=== PATIENT | female | born 1965 | race Caucasian/White ===

== ENCOUNTER 2016-08-09 11:00 | Emergency (ER) | payer BC ==
[2016-08-09] MEDS ORDERED: LIDOCAINE VISCOUS 2% 15 ML UDC MM STA (12:44)
[2016-08-09] MEDS ORDERED: MAG HYDROX/AL HYDROX/SIMETH 30 ML UDC PO STA (12:44)
[2016-08-09] MEDS ORDERED: LIDOCAINE VISCOUS 2% 15 ML UDC MM ONE (12:54)
[2016-08-09] MEDS ORDERED: MAG HYDROX/AL HYDROX/SIMETH 30 ML UDC ONE (12:55)
== END 2016-08-09 13:47 | disposition home or self-care (01) ==
DX: R07.1 Chest pain on breathing (principal)
CPT/HCPCS: 36415; 71020; 80053; 83690; 84484; 93005; 93010; 99283; 99284; A9270

== ENCOUNTER 2016-10-11 08:50 | Outpatient (CLI) | payer BC ==
--- NOTE | 2016-10-12 17:26 | Mammography Report ---
DIGITAL SCREENING MAMMOGRAM: 10/11/2016 CLINICAL INDICATION: A 50-year-old for screening. COMPARISON: 09/2015, 05/2014, 04/2013, 12/2009 TECHNIQUE: Routine CC and MLO projections were obtained of the breasts. FINDINGS: The breasts demonstrate heterogeneously dense fibroglandular parenchyma bilaterally. Ther e is a possible increase in calcifications in the right upper outer quadrant. Further evaluation wit h spot magnification views is recommended. No mammographically suspicious findings are appreciated i n the left breast. IMPRESSION: INCOMPLETE EXAMINATION. RECOMMENDATION: Additional evaluation of the right breast as above. BIRADS CATEGORY 0 - INCOMPLETE. STANDARD QUALIFYING STATEMENTS 1. This examination was reviewed with the aid of Computer-Aided Detection (CAD). 2. A negative or benign imaging report should not delay biopsy if clinically suspicious findings are present. Consider surgical consultation if warranted. More than 5% of cancers are not identified by i maging. 3. Dense breasts may obscure an underlying neoplasm. JOB #: [id number] EXT JOB #:[id number]
== END 2016-10-11 08:51 | disposition home or self-care (01) ==
LOC: DI 08:50
PROVIDERS: ATTEND Naturopath
DX: Z12.31 Encounter for screening mammogram for malignant neoplasm of breast (principal); R92.1 Mammographic calcification found on diagnostic imaging of breast
CPT/HCPCS: 77067

== ENCOUNTER 2016-10-26 12:31 | Outpatient (CLI) | payer BC ==
--- NOTE | 2016-10-26 16:02 | Mammography Report ---
DIGITAL ADDITIONAL VIEWS OF THE RIGHT BREAST: 10/26/2016 CLINICAL HISTORY: A 51-year-old female who had progression of a cluster of calcifications in the uppe r outer quadrant of the right breast on recent screening mammogram dated 10/11/2016. The patient retu rns today for magnification views. Family history indicates no family history of breast cancer. The patient has no history of prior [facility] [address] surgeries. COMPARISON: 12/12/2009, 12/16/2009, 04/28/2013, 05/04/2014, 09/13/2015, 10/11/2016. TECHNIQUE: Magnification craniocaudad and mediolateral views of the right breast were done with Holog ic full field digital mammography. FINDINGS: The breast parenchyma once again consists of heterogeneous breast. There is a cluster of c alcifications noted in the upper outer quadrant of the right breast at the 10 o'clock position 5-6 cm superior and posterior to the right nipple. These calcifications have a faint granular type appearan ce that can be seen especially with cribriform type of breast cancer. Recommend stereotactic biopsy u nder mammographic guidance for further evaluation. IMPRESSION: A FAIRLY LARGE CLUSTER OF FAINT GRANULAR TYPE OF CALCIFICATIONS IS SEEN IN THE UPPER OUT ER QUADRANT OF THE RIGHT BREAST AT THE 10 O'CLOCK POSITION. THESE HAVE SHOWN SIGNIFICANT PROGRESSION OVER THE COURSE OF PATIENT'S MAMMOGRAMS. FINDINGS RAISE CONCERN IN REGARD TO A BREAST CANCER. RECOMME ND STEREOTACTIC BIOPSY UNDER MAMMOGRAPHIC GUIDANCE FOR FURTHER EVALUATION. BIRADS CATEGORY 4-SUSPICIOUS FINDING. STEREOTACTIC BIOPSY UNDER MAMMOGRAPHIC GUIDANCE IS RECOMMENDED FOR FURTHER EVALUATION. COMMENT: Dr. Gaston attempted to contact patient's physician. Dr. Gomez was not available. A message w as left on her voice mail in regard to the findings of patient's additional views of the right breast and the recommendations for stereotactic biopsy under mammographic guidance. A report will also be f axed to Dr. Gomez's office today in addition to her receiving the official signed report. This was done on 10/26/2016 at 2:15 p.m. STANDARD QUALIFYING STATEMENTS 1. This examination was reviewed with the aid of Computer-Aided Detection (CAD). 2. A negative or benign imaging report should not delay biopsy if clinically suspicious findings are present. Consider surgical consultation if warranted. More than 5% of cancers are not identified by i maging. 3. Dense breasts may obscure an underlying neoplasm. JOB #: [id number] EXT JOB #:[id number]
== END 2016-10-26 12:32 | disposition home or self-care (01) ==
LOC: DI 12:31
PROVIDERS: ATTEND Naturopath
DX: R92.1 Mammographic calcification found on diagnostic imaging of breast (principal)

== ENCOUNTER 2016-12-14 08:43 | Outpatient (CLI) | payer BC | END 2016-12-14 08:44 | disposition home or self-care (01) | LOC: DI 08:43 | PROVIDERS: ATTEND Naturopath | DX: R94.31 Abnormal electrocardiogram [ECG] [EKG] (principal); R42 Dizziness and giddiness | CPT/HCPCS: 93306 ==

== ENCOUNTER 2018-06-28 08:21 | Outpatient (CLI) | payer BC ==
[2018-06-28 08:47] LABS: BASOPHILS % (AUTO) 0.9 %; EOSINOPHILS # (AUTO) 0.3 10^3/uL (0.0-0.7); EOSINOPHILS % (AUTO) 5.7 %; HGB - HEMOGLOBIN 15.2 g/dL (12.0-16.0); LYMPHOCYTES # (AUTO) 1.9 10^3/uL (1.5-3.5); LYMPHOCYTES % (AUTO) 36.3 %; MEAN CORPUSCULAR HEMOGLOBIN 32.1 pg (27.0-31.0); MEAN CORPUSCULAR HGB CONC 33.9 g/dL (32.0-36.0); MEAN CORPUSCULAR VOLUME 94.6 fL (81.0-99.0); MEAN PLATELET VOLUME 8.6 fL (7.9-10.8); MONOCYTES # (AUTO) 0.5 10^3/uL (0.0-1.0); MONOCYTES % (AUTO) 9.2 %; NEUTROPHILS # (AUTO) 2.5 10^3/uL (1.5-6.6); NEUTROPHILS % (AUTO) 47.9 %; PLT - PLATELET COUNT 234 10^3/uL (130-450); RED BLOOD COUNT 4.72 10^6/uL (4.20-5.40); RED CELL DISTRIBUTION WIDTH 13.8 % (12.0-15.0); WHITE BLOOD COUNT 5.3 x10^3/uL (4.8-10.8)
[2018-06-28 09:04] LABS: % IRON SATURATION 70 % (20-50); ALBUMIN/GLOBULIN RATIO 1.4 (1.0-2.2); ALKALINE PHOSPHATASE 54 IU/L (42-121); ALT ALANINE AMINOTRANSFERASE 24 IU/L (10-60); AST ASPARTATE AMINOTRANSFERASE 25 IU/L (10-42); BUN - BLOOD UREA NITROGEN 14 mg/dL (6-20); CALCIUM 8.9 mg/dL (8.5-10.3); CARBON DIOXIDE - CO2 26 mmol/L (21-32); CHLORIDE 103 mmol/L (101-111); CHOL/HDL RATIO 2.9 (<4.4); CHOLESTEROL 194 mg/dL; CREATININE 0.6 mg/dL (0.4-1.0); GFR - MDRD 105 (>89); GLUCOSE 107 mg/dL (70-100); HDL CHOLESTEROL 68 mg/dL; IRON 140 ug/dL (28-170); LDL CHOLESTEROL,CALCULATED 114 mg/dL; LDL/HDL RATIO 1.7 (<4.4); SODIUM 138 mmol/L (135-145); TOTAL IRON BINDING CAPACITY 200 ug/dL (250-450); TOTAL PROTEIN 6.9 g/dL (6.7-8.2); TRANSFERRIN 143 mg/dL (192-382); VLDL CHOLESTEROL 12 mg/dL
[2018-06-28 09:18] LABS: FREE T4 (FREE THYROXINE) 1.01 ng/dL (0.58-1.64)
[2018-06-28 09:26] LABS: HB2 TOTAL 16.3 g/dL; HEMOGLOBIN A1C 0.53 g/dL; HEMOGLOBIN A1C % 5.1 % (4.6-6.2)
[2018-06-28 09:36] LABS: THYROID STIMULATING HORMONE 1.02 uIU/mL (0.34-5.60)
[2018-06-28 09:43] LABS: FERRITIN 68.3 ng/mL (11.0-306.8); TOTAL T3 0.82 ng/mL (0.87-1.78)
== END 2018-06-28 08:22 | disposition home or self-care (01) ==
LOC: LAB 08:21
PROVIDERS: ATTEND Naturopath
DX: Z00.00 Encounter for general adult medical examination without abnormal findings (principal); R53.83 Other fatigue; R63.5 Abnormal weight gain; R79.89 Other specified abnormal findings of blood chemistry; R71.8 Other abnormality of red blood cells; L65.9 Nonscarring hair loss, unspecified; E55.9 Vitamin D deficiency, unspecified
CPT/HCPCS: 36415; 80053; 80061; 82728; 83036; 83540; 83721; 84439; 84443; 84466; 84480; 84481; 84482; 85025

== ENCOUNTER 2018-08-16 07:13 | Outpatient (CLI) | payer BC ==
[2018-08-16 08:40] LABS: THYROID STIMULATING HORMONE 1.49 uIU/mL (0.34-5.60)
[2018-08-16 08:42] LABS: FREE T4 (FREE THYROXINE) 0.81 ng/dL (0.58-1.64)
[2018-08-16 08:47] LABS: TOTAL T3 1.2 ng/mL (0.87-1.78)
== END 2018-08-16 07:14 | disposition home or self-care (01) ==
LOC: LAB 07:13
PROVIDERS: ATTEND Naturopath
DX: E03.9 Hypothyroidism, unspecified (principal); R53.83 Other fatigue; R63.5 Abnormal weight gain; L65.9 Nonscarring hair loss, unspecified
CPT/HCPCS: 36415; 84439; 84443; 84480; 84481; 84482

== ENCOUNTER 2018-10-25 07:27 | Outpatient (CLI) | payer BC ==
--- NOTE | 2018-10-25 22:07 | Ultrasound Report ---
Reason: ABNORMAL LEVEL OF BLOOD MINERAL Procedure Date: 10/25/2018 Accession Number: [id number] / [id number] Procedure: US - Abdomen Limited CPT Code: FULL RESULT: EXAM: ABDOMEN ULTRASOUND LIMITED, RUQ EXAM DATE: 10/25/2018 08:04 AM. CLINICAL HISTORY: ABNORMAL LEVEL OF BLOOD MINERAL. COMPARISON: None. TECHNIQUE: Real-time scanning was performed with static images obtained. FINDINGS: Liver: Unremarkable echotexture. 13 cm. Main portal vein flow: Hepatopetal. Gallbladder: No stones, wall thickening, or sonographic Chang's sign. Biliary System: CBD measures 6 mm. No intrahepatic ductal dilatation. Other: Right kidney demonstrates no hydronephrosis. Visualized portions of the pancreas are unremarkable. Distal body and tail are obscured by overlying bowel gas. IMPRESSION: No acute sonographic abnormalities. RADIA
== END 2018-10-25 07:28 | disposition home or self-care (01) ==
LOC: DI 07:27
PROVIDERS: ATTEND Internal Medicine
DX: R79.0 Abnormal level of blood mineral (principal)
CPT/HCPCS: 76705

== ENCOUNTER 2019-03-24 08:04 | Outpatient (CLI) | payer BC ==
[2019-03-24 08:36] LABS: BASOPHILS # (AUTO) 0.1 10^3/uL (0.0-0.1); EOSINOPHILS # (AUTO) 0.4 10^3/uL (0.0-0.7); EOSINOPHILS % (AUTO) 6.1 %; HGB - HEMOGLOBIN 14.9 g/dL (12.0-16.0); LYMPHOCYTES # (AUTO) 2.4 10^3/uL (1.5-3.5); LYMPHOCYTES % (AUTO) 38.5 %; MEAN PLATELET VOLUME 10.1 fL (7.9-10.8); MONOCYTES # (AUTO) 0.5 10^3/uL (0.0-1.0); MONOCYTES % (AUTO) 8.1 %; NEUTROPHILS # (AUTO) 2.9 10^3/uL (1.5-6.6); PLT - PLATELET COUNT 229 10^3/uL (130-450); RED BLOOD COUNT 4.65 10^6/uL (4.20-5.40); RED CELL DISTRIBUTION WIDTH 13.4 % (12.0-15.0); WHITE BLOOD COUNT 6.3 x10^3/uL (4.8-10.8)
[2019-03-24 09:01] LABS: ALBUMIN 3.8 g/dL (3.2-5.5); ALBUMIN/GLOBULIN RATIO 1.4 (1.0-2.2); BILIRUBIN,TOTAL 0.8 mg/dL (0.2-1.0); CALCIUM 8.6 mg/dL (8.5-10.3); CREATININE 0.7 mg/dL (0.4-1.0); TOTAL PROTEIN 6.5 g/dL (6.7-8.2)
[2019-03-24 09:09] LABS: THYROID STIMULATING HORMONE 1.62 uIU/mL (0.34-5.60)
[2019-03-24 09:11] LABS: FREE T4 (FREE THYROXINE) 0.76 ng/dL (0.58-1.64)
[2019-03-24 09:15] LABS: FERRITIN 58.9 ng/mL (11.0-306.8)
[2019-03-24 09:16] LABS: TOTAL T3 1.21 ng/mL (0.87-1.78)
[2019-03-24 09:25] LABS: FREE T3 3.44 pg/mL (2.5-3.9)
== END 2019-03-24 08:05 | disposition home or self-care (01) ==
LOC: LAB 08:04
PROVIDERS: ATTEND Naturopath
DX: Z01.84 Encounter for antibody response examination (principal); R79.0 Abnormal level of blood mineral; E03.9 Hypothyroidism, unspecified; R77.8 Other specified abnormalities of plasma proteins
CPT/HCPCS: 36415; 80053; 82728; 83540; 84439; 84443; 84466; 84480; 84481; 84482; 85025; 86735; 86762; 86765

== ENCOUNTER 2019-06-23 08:24 | Outpatient (CLI) | payer BC ==
[2019-06-23 09:40] LABS: HEMOGLOBIN A1C 0.6 g/dL; HEMOGLOBIN A1C % 5.8 % (4.6-6.2)
[2019-06-23 09:52] LABS: THYROID STIMULATING HORMONE 1.1 uIU/mL (0.34-5.60)
[2019-06-23 09:56] LABS: FREE T4 (FREE THYROXINE) 0.66 ng/dL (0.58-1.64)
[2019-06-23 10:00] LABS: TOTAL T3 1.38 ng/mL (0.87-1.78)
[2019-06-24 10:55] LABS: HOMOCYSTEINE 9.9 umol/L (<10.4)
== END 2019-06-23 08:25 | disposition home or self-care (01) ==
LOC: LAB 08:24
PROVIDERS: ATTEND Naturopath
DX: Z00.00 Encounter for general adult medical examination without abnormal findings (principal); E03.9 Hypothyroidism, unspecified; R79.0 Abnormal level of blood mineral; R53.83 Other fatigue; E55.9 Vitamin D deficiency, unspecified; E28.1 Androgen excess
CPT/HCPCS: 36415; 82306; 82626; 83036; 83090; 84439; 84443; 84480; 84481; 84482

== ENCOUNTER 2020-02-19 16:09 | Outpatient (CLI) | payer BC ==
--- NOTE | 2020-02-19 17:08 | XRAY Report ---
PROCEDURE: Hand 3 View RT INDICATIONS: PAIN TECHNIQUE: 3 views of the hand(s) acquired. COMPARISON: None FINDINGS: Bones: No fractures or dislocations. No suspicious bony lesions. Very minimal scattered IP osteoar thritic changes are noted. Soft tissues: No suspicious soft tissue calcifications. IMPRESSION: No acute osseous abnormality. Reviewed by: Erendira Patel MD on 02/19/2020 5:07 PM PDT Approved by: Erendira Patel MD on 02/19/2020 5:07 PM PDT Station ID: [id number]
== END 2020-02-19 16:10 | disposition home or self-care (01) ==
LOC: DI 16:09
PROVIDERS: ATTEND Naturopath
DX: M79.641 Pain in right hand (principal); M79.644 Pain in right finger(s)